=== PATIENT | male | born 1990 | race Two or more races ===

== ENCOUNTER 2021-07-06 17:16 | Emergency (ER) | payer OTHER ==
[~2021-07-06] VITALS: Ht 170.2 cm; Wt 65.8 kg
== END 2021-07-06 21:08 | disposition home or self-care (01) ==
LOC: ER 17:16
DX: R10.31 Right lower quadrant pain (principal); R10.30 Lower abdominal pain, unspecified

== ENCOUNTER 2022-01-22 12:52 | Outpatient (CLI) | payer OTHER | END 2022-01-22 13:00 | disposition home or self-care (01) | LOC: RAD 12:52 | DX: M99.02 Segmental and somatic dysfunction of thoracic region (principal); M99.03 Segmental and somatic dysfunction of lumbar region; M99.04 Segmental and somatic dysfunction of sacral region; M99.05 Segmental and somatic dysfunction of pelvic region ==

== ENCOUNTER 2024-05-07 13:03 | Outpatient (CLI) | payer OTHER | END 2024-05-07 13:09 | disposition home or self-care (01) | LOC: RAD 13:03 | DX: M54.2 Cervicalgia (principal); M54.50 Low back pain, unspecified; M54.6 Pain in thoracic spine; M99.02 Segmental and somatic dysfunction of thoracic region; M25.511 Pain in right shoulder ==